=== PATIENT | male | born 1965 | race Caucasian/White ===

== ENCOUNTER 2020-05-11 09:51 | Emergency (ER) | payer OTHER ==
[2020-05-11 10:00] VITALS: BMI 28.7
[2020-05-11] MEDS ORDERED: BAMLANIVIMAB 700 MG in SODIUM CHLORIDE 250 ML IVPB ONE (10:31)
[2020-05-11 11:04] LABS: EOS % 1.7 % (0-4.5); HEMATOCRIT 41.6 % (35.4-49); HEMOGLOBIN 13.8 GM/dL (11.7-16.9); LYMPH % 30.3 % (8-40); MCH 28.8 pg (25.7-33.7); MCHC 33.2 g/dl (32.0-35.9); MEAN CELL VOLUME 86.7 fl (80-96); MEAN PLT VOLUME 8.5 fl (7.5-11.1); MONO % 17.2 % (3.8-10.2); NEUT % 49.8 % (42.8-82.8); PLATELET COUNT 271 K/MM3 (134-434); RDW 14.1 % (11.9-15.9); WHITE BLOOD COUNT 4.7 K/mm3 (4.0-10.0)
[2020-05-11 11:27] LABS: POTASSIUM 3.9 mmol/L (3.5-5.1)
[2020-05-11 11:29] LABS: ALBUMIN 3.5 g/dl (3.4-5.0); BLOOD UREA NITROGEN 11.2 mg/dL (7-18); CALCIUM 9.2 mg/dL (8.5-10.1)
[2020-05-11 11:33] VITALS: PULSE 78; TEMP 98.3
[2020-05-11 11:34] LABS: BILIRUBIN,TOTAL 0.2 mg/dL (0.2-1); TOT PROT 7.1 g/dl (6.4-8.2)
[2020-05-11 14:53] VITALS: BP 122/77
== END 2020-05-11 14:52 | disposition home or self-care (01) ==
LOC: JER 09:51
DX: U07.1 COVID-19 (principal)
CPT/HCPCS: 36415; 80053; 85025; 99284-25; M0239; Q0239